=== PATIENT | male | born 1960 | race Caucasian/White ===

== ENCOUNTER 2017-03-03 19:01 | Emergency (ER) | payer OTHER ==
[~2017-03-03] VITALS: Ht 167.6 cm; Wt 92.1 kg
[2017-03-03 19:08] VITALS: Ht 167.6 cm; Wt 92.1 kg
[2017-03-03] MEDS ORDERED: SOD CHLORIDE 0.9% 1,000 ML IV STA (20:37)
[2017-03-03] MEDS ORDERED: MECLIZINE 12.5 MG TAB PO ONE (21:00)
[2017-03-03 21:04] LABS: BASOPHIL # 0.1 10^3/ul (0.0-0.1); BASOPHILS % 0.7 % (0.0-2.0); EOSINOPHILS # 0.5 10^3/ul (0.0-0.5); EOSINOPHILS % 3.8 % (0.0-7.0); HEMATOCRIT 45.9 % (42.0-52.0); HEMOGLOBIN 16.1 g/dl (14.0-18.0); LYMPHOCYTES # 2.8 10^3/ul (0.8-2.9); LYMPHOCYTES % 22.8 % (15.0-51.0); MEAN CORPUSCULAR HEMOGLOBIN 31.3 pg (29.0-33.0); MEAN CORPUSCULAR HGB CONC 35.1 g/dl (32.0-37.0); MEAN CORPUSCULAR VOLUME 89.1 fl (82.0-101.0); MEAN PLATELET VOLUME 9.6 fl (7.4-10.4); MONOCYTE # 0.8 10^3/ul (0.3-0.9); MONOCYTES % 6.7 % (0.0-11.0); NEUTROPHIL # 7.9 10^3/ul (1.6-7.5); NEUTROPHILS % 65.5 % (39.0-77.0); PLATELET COUNT 201 10^3/UL (140-415); RED BLOOD COUNT 5.15 10^6/ul (4.70-6.10); WHITE BLOOD COUNT 12.1 10^3/ul (4.8-10.8)
--- NOTE | 2017-03-03 21:06 | RADRPT ---
PROCEDURE: CT Brain without contrast. CLINICAL INDICATION: Dizziness. TECHNIQUE: A CT of the brain without contrast was performed utilizing axial sections from the skul l base through the vertex. The patient was scanned without intravenous contrast enhancement. Sagitta l and coronal reformatted images were obtained using the data from the axial images. Total exam DLP is 720.23 mGy-cm. CTDIvol is 41.88 mGy. One or more of the following dose reduction techniques we re used: Automated exposure control, adjustment of the mA and/or kV according to patient size, use o f iterative reconstruction technique. DICOM images are available. COMPARISON: None available FINDINGS: There is normal whitmore-white matter differentiation. The ventricles and cisterns are normal. There is no intracranial hemorrhage or space-occupying lesion. There is no skull fracture or lytic lesion. IMPRESSION: 1. No intracranial hemorrhage. 2. Normal noncontrast CT scan of the brain. RPTAT: QQ .Jared Medina MD, MD Date Time Electronically viewed and signed by .Jared Medina MD, on 03/03/2017 21:05 .R/
[2017-03-03 21:23] LABS: ANION GAP 15 (8-16); BLOOD UREA NITROGEN 27 mg/dl (7-20); CALCIUM 9.1 mg/dl (8.4-10.2); CARBON DIOXIDE 25 mmol/L (21-31); CHLORIDE 102 mmol/L (97-110); CREATININE 1.24 mg/dl (0.61-1.24); GLUCOSE 187 mg/dl (70-220); POTASSIUM 4.1 mmol/L (3.5-5.1); SODIUM 138 mmol/L (135-144)
[2017-03-03 21:40] LABS: TROPONIN-I < 0.012 ng/ml (0.00-0.12)
[2017-03-03] MEDS ORDERED: ONDANSETRON (ODT) 4 MG TAB ODT STA (21:46)
--- NOTE | 2017-03-03 23:30 | ERD ---
ER Documentation Chief Complaint Chief Complaint dizziness x 3 weeks, was sent by PMD HPI Patient is a 57-year-old male with a past medical history of hypertension, DM, hyperlipidemia who presents to the ED for concerns of dizziness 3 weeks. Patient states that his symptoms started after taking metformin. Patient is currently taking metformin 500 mg twice daily. Was newly diagnosed with diabetes. Patient states he feels "wobbly" only when walking. Patient states his symptoms are primarily worse in the morning. During the day he has minimal symptoms. Patient denies any falls or trauma. Patient states he does occasionally have nausea however he denies any vomiting. Patient denies any blurry vision, headache, chest pain, shortness of breath, left upper extremity pain, or loss of consciousness. Patient sent to the ED by his primary care physician. Patient denies any unilateral weakness, slurred speech, hearing loss , dysphagia. ROS All systems reviewed and are negative except as per history of present illness. Allergies Allergies: Coded Allergies: No Known Allergy (Unverified , 03/03/17) PMhx/Soc Medical and Surgical Hx: pt denies Surgical Hx Anesthesia Reaction: No Hx Neurological Disorder: No Hx Respiratory Disorders: Yes (SLEEP APNEA) Hx Cardiac Disorders: Yes (HTN, HYPERLIPIDEMIA, ) Hx Psychiatric Problems: Yes (ANXIETY) Hx Miscellaneous Medical Probl: Yes (ALLERGIC RHYNITIS, DM ) Hx Alcohol Use: No Hx Substance Use: No Hx Tobacco Use: No Smoking Status: Never smoker Physical Exam Vitals Vital Signs Date Time Temp Pulse Resp B/P Pulse Ox O2 Delivery O2 Flow Rate FiO2 03/04/17 00:30 98.2 75 22 99 Room Air 03/03/17 19:08 97.6 96 19 164/99 Physical Exam GENERAL: Well-developed, well-nourished male. Appears in no acute distress. Speaking in full sentences. HEAD: Normocephalic, atraumatic. EYES: Pupils are equally reactive bilaterally. EOMs grossly intact. No conjunctival erythema. ENT: Moist mucous membranes. No uvula deviation. No kissing tonsils. NECK: Supple. No meningismus. Normal range of motion of the neck. LUNG: Clear to auscultation bilaterally. No rhonchi, wheezing, rales or coarse breath sounds. HEART: Regular rate and rhythm. EXTREMITIES: Equal pulses bilaterally. No peripheral clubbing, cyanosis or edema. No unilateral leg swelling. NEUROLOGIC: Alert and oriented x3, cooperative. Mood and affect appropriate to situation. Cranial nerves II through XII are grossly intact. Normal speech. Motor exam: 5/5 strength in upper and lower extremities. Sensory exam: Sensation intact to light touch on all four extremities. Cerebellar function exam: No dysmetria on [id number] test. Steady gait. No pronator drift. SKIN: Normal color. Warm and dry. No rashes or lesions. Result Diagram: 03/03/17204303/03/172043 Results 24 hrs Laboratory Tests Test 03/03/17 20:44 White Blood Count 12.110^3/ul Red Blood Count 5.1510^6/ul Hemoglobin 16.1g/dl Hematocrit 45.9% Mean Corpuscular Volume 89.1fl Mean Corpuscular Hemoglobin 31.3pg Mean Corpuscular Hemoglobin Concent 35.1g/dl Red Cell Distribution Width 12.0% Platelet Count 55621^3/UL Mean Platelet Volume 9.6fl Neutrophils % 65.5% Lymphocytes % 22.8% Monocytes % 6.7% Eosinophils % 3.8% Basophils % 0.7% Nucleated Red Blood Cells % 0.0/100WBC Neutrophils # 7.910^3/ul Lymphocytes # 2.810^3/ul Monocytes # 0.810^3/ul Eosinophils # 0.510^3/ul Basophils # 0.110^3/ul Nucleated Red Blood Cells # 0.010^3/ul Sodium Level 138mmol/L Potassium Level 4.1mmol/L Chloride Level 102mmol/L Carbon Dioxide Level 25mmol/L Anion Gap 15 Blood Urea Nitrogen 27mg/dl Creatinine 1.24mg/dl Glucose Level 187mg/dl Calcium Level 9.1mg/dl Troponin I < 0.012ng/ml Current Medications Medications (Trade) Dose Ordered Sig/Lauren Route PRN Reason Start Time Stop Time Status Last Admin Dose Admin Sodium Chloride (NS) 1,000 ml @ 1,000 mls/hr Q1H STAT IV 03/03/17 20:37 03/03/17 21:36 DC 03/03/17 20:55 Meclizine HCl (Antivert) 12.5 mg ONCE ONCE PO 03/03/17 21:00 03/03/17 21:01 DC 03/03/17 20:58 Ondansetron HCl (Zofran Odt) 8 mg ONCE STAT ODT 03/03/17 21:46 03/03/17 21:53 DC Procedures/MDM ED COURSE: The patient was stable throughout ED course. I kept the patient and/or family informed of laboratory and diagnostic imaging results throughout the ED course. EKG: Read by Dr. Fierro, attending physician. EKG shows normal sinus rhythm at a rate of [address] elevations were noted. DIAGNOSTIC IMAGING: Read by radiologist. Patient: MARVA GÓMEZ : 1960 Age: 57 Sex: M MR #: [id number] DOS: 03/03/172036 Ordering MD: ERINN CARTER PA-C Location: [facility] Room/Bed: PROCEDURE: CT Brain without contrast. CLINICAL INDICATION: Dizziness. TECHNIQUE: A CT of the brain without contrast was performed utilizing axial sections from the skull base through the vertex. The patient was scanned without intravenous contrast enhancement. Sagittal and coronal reformatted images were obtained using the data from the axial images. Total exam DLP is 720.23 mGy-cm. CTDIvol is 41.88 mGy. One or more of the following dose reduction techniques were used: Automated exposure control, adjustment of the mA and/or kV according to patient size, use of iterative reconstruction technique. DICOM images are available. COMPARISON: None available FINDINGS: There is normal whitmore-white matter differentiation. The ventricles and cisterns are normal. There is no intracranial hemorrhage or space-occupying lesion. There is no skull fracture or lytic lesion. IMPRESSION: 1. No intracranial hemorrhage. 2. Normal noncontrast CT scan of the brain. RPTAT: QQ .Jared Medina MD, MD Date Time Electronically viewed and signed by .Jared Medina MD, on 03/03/2017 21:05 .R/ CC: ERINN CARTER PA-C PROCEDURES: None. MEDICATIONS GIVEN: Meclizine, IV fluids Patient tolerated medication well with no adverse reactions. MEDICAL DECISION MAKING: This is a 57-year-old male who presents with dizziness, worse with ambulating, 3 weeks. Patient reports starting metformin 3 weeks ago. Vital signs were reviewed. Patient was afebrile. Patient was not hypoxic. Patient states that the room is spinning. Describes his dizziness to be intermittent, worse in the morning, worse with ambulating. The patient denied hearing loss, diplopia or dysphagia. Full neuro exam was normal. CT brain was negative. EKG was within normal limits. CBC showed no severe anemia. His white count was noted to be 12 however low suspicion for systemic infection or sepsis at this time. CMP showed no evidence of electrolyte abnormalities, severe acidosis, alkalosis, renal failure. Lipase showed no evidence of acute pancreatitis. Trop was negative. Given these findings, the patient's presentation is most consistent with benign paroxysmal positional vertigo. I have a much lower clinical concern for ACS, CVA , intracranial hemorrhage, cerebral infarct, intracranial mass, multiple sclerosis, labyrinthitis, anemia or severe electrolyte abnormalities. DISCHARGE: At this time, patient is stable for discharge and outpatient management. Patient was given a copy of all imaging studies and blood work obtained today. Patient was advised to discuss his medications with his primary care physician. I have instructed the patient to follow-up with his/her primary care physician in 1-2 days. If symptoms persist, patient may need to see a specialist for further examinations and testing. I have instructed the patient to promptly return to the ER at any time for any new or worsening symptoms including increased increased pain, fever, nausea, vomiting, numbness, weakness , slurred speech, LOC. The patient and/or family expressed understanding of and agreement with this plan. All questions were answered. Home care instructions were provided. Disclaimer: Inadvertent spelling and grammatical errors are likely due to EHR/ dictation software use and do not reflect on the overall quality of patient care. Also, please note that the electronic time recorded on this note does not necessarily reflect the actual time of the patient encounter. Patients blood pressure was elevated (>120/80) but appears stable without evidence of hypertensive emergency, hypertensive urgency or end-organ failure. I had discussion with the patient about the risks of hypertension. I have advised the patient to follow up with his/her primary care physician for outpatient monitoring and treatment for hypertension in 2-3 days. I have instructed the patient to return to the ER for any new or worsening symptoms including chest pain, shortness of breath, headache, blurred vision, confusion, nausea, vomiting or LOC. Departure Diagnosis: Primary Impression: Dizziness Condition: Stable Patient Instructions: Dizziness, Unk Cause Referrals: JAZLYN PUGH MD (PCP) Additional Instructions: Call your primary care doctor TOMORROW for an appointment during the next 1-2 days.See the doctor sooner or return here if your condition worsens before your appointment time. Follow up with your primary care physician. Take all blood work and imaging studies with you. Discussed stopping metformin as this may be causing her symptoms. ERINN CARTER PA-C Mar 03, 2017 23:30
[2017-03-04 00:30] VITALS: PULSE 75; RESP 22; TEMP 98.2
== END 2017-03-04 00:15 | disposition home or self-care (01) ==
LOC: FTE 19:01
DX: R42 Dizziness and giddiness (principal); I10 Essential (primary) hypertension; E11.9 Type 2 diabetes mellitus without complications
CPT/HCPCS: 36415; 70450; 80048; 84484; 85025; 93005; 99285; J7030